=== PATIENT | male | born 1980 | race Caucasian/White ===

== ENCOUNTER 2020-02-04 01:20 | Emergency (ER) | payer BC ==
[~2020-02-04] VITALS: Ht 177.8 cm; Wt 99.8 kg
[~2020-02-04 01:20] MED LIST: ADVAIR 250-501 EACH; ADVAIR HFA115 MCG/21 INH; AMOXICILLIN875 MG PO; IMIQUIMOD1 EACH TP; NORCO 5-325 TA1 EACH PO; PREDNISONE50 MG PO; PROAIR HFA8.5 GM; VENTOLIN HFA 1818 GM INH; VENTOLIN HFA INH8 GM
[2020-02-04] MEDS ORDERED: FLEXERIL PO (02:16)
[2020-02-04] MEDS ORDERED: HYDROCODON-ACE1 EAC8 PO (02:16)
[2020-02-04 02:48] VITALS: BP 124/86
== END 2020-02-04 02:49 | disposition home or self-care (01) ==
LOC: M.ERS 01:20
DX: M25.511 Pain in right shoulder (principal); M79.621 Pain in right upper arm; J45.909 Unspecified asthma, uncomplicated